=== PATIENT | female | born 1985 | race Caucasian/White ===

== ENCOUNTER 2017-05-08 21:30 | Emergency (ER) | payer OTHER ==
[~2017-05-08] VITALS: Ht 160 cm; Wt 72.6 kg
--- NOTE | ~2017-05-08 | EKG ---
PATIENT: CHANTALE JOHNSON UNIT #: [id number] Ventricular Rate: 73 BPM Atrial Rate: 73 BPM P-R Interval: 118 ms QRS Duration: 78 ms Q-T Interval: 394 ms QTC Calculation(Bezet): 434 ms P [place]: 36 degrees Calculated R [place]: 36 degrees Calculated T [place]: 12 degrees Diagnosis Line: Normal sinus rhythm Diagnosis Line: Nonspecific T wave abnormality Diagnosis Line: Borderline ECG Diagnosis Line: When compared with ECG of 24-JAN-2014 19:54, Diagnosis Line: No significant change was found Diagnosis Line: Confirmed by LONNIE PANTOJA MD ([id number]) on 05/09/2017 Diagnosis Line: 4:33:02 PM INTERPRETING MD: KIT BRONSON
--- NOTE | ~2017-05-08 | CR72 ---
[facility]. [facility] A Service of [facility] & [facility] RADIOLOGY TEXT RESULTS PATIENT: CHANTALE JOHNSON LOCATION: SED : 87 UNIT #: [id number] AGE: [address]: Navin Onofre MD SEX: F ORDER DR: [id number] [place] [id number] MR#: [id number] Acc #: [id number] NAME: CHANTALE JOHNSON : 1985 SEX: F STUDY DATE/TIME: 05/08/2017 22:45 UNIT: SED ROOM: STUDY DESCRIPTION: CR Chest Single View Portable Attending Physician: Navin Onofre M.D. Ordering Physician: Navin Onofre M.D. Primary Care Physician: Dave Gunter M.D. MEDICAL IMAGING REPORT This report is preliminary unless electronic signature is present. EXAM Chest x-ray, 05/08/2017 HISTORY 31-year-old female in the ED complaining of chest pain beginning earlier today after an epidural spine injection. TECHNIQUE AP portable upright chest x-ray. FINDINGS The examination is technically limited due to underexposure of the lower lungs due to patient body habitus. The lungs are grossly clear. Heart size and pulmonary vascularity are normal. No visible pulmonary filtrate or pleural effusion. No pneumothorax. IMPRESSION Negative chest x-ray with limitations as noted above. Dictated by... Marlo Olvera M.D. THIS IS AN ELECTRONICALLY VERIFIED REPORT Marlo Olvera M.D. at 05/12/2017 11:06 PM Trena TD: 05/09/2017 13:04 JOB #: [id number] MEDICAL IMAGING REPORT Page 1 of 1
[~2017-05-08 21:30] MED LIST: ABILIFY20 MG; ABILIFY20 MG PO; ALBUTEROL17 GM INH; AMBIEN PO; AMITRIPTYLINE H75 MG PO; ANTIVERT PO; BACLOFEN10 MG PO; BACTROBAN15 GM TOP; BUSPAR5 M1 DOB; CLEOCIN HCL300 M1 PO; CORTISONE14 GM TP; DIPHENHYDRAMINE30 GM TP; EFFEXOR-XR150 MG; EPINEPHRIN0.3 MG/0.3 IJ; FLEXERIL PO; FLORINEF ACETA0.1 MG PO; FLORINEF0.1 MG PO; IBUPROFEN800 MG PO; LIORESAL10 MG; MECLIZINE HCL12.5 MG PO; NORCO 10-325 TA1 TAB PO; NORCO1 TAB 10/3; PHENERGAN W/CO120 ML PO; PRENATAL MULITV1 TAB; PRENATAL1 TA1; SINGULAIR; SYMBICORT INH; THORAZINE10 MG PO; TOPAMAX PO; WELLBUTRIN PO; ZITHROMAX PO; ZOLOFT PO
[2017-05-08] MEDS ORDERED: ZANAFLEX2 M1 PO (21:37)
[2017-05-08] MEDS ORDERED: ALBUTEROL17 GM INH (21:38)
[2017-05-08] MEDS ORDERED: SYMBICORT INH (21:38)
[2017-05-08 22:38] LABS: BASOPHIL# 0.1 X10e3 (0-0.3); BASOPHIL% 0.6 % (0-2.5); DIFF IND NO; EOSINOPHIL# 0.2 X10e3 (0-0.7); EOSINOPHIL% 1.8 % (0.0-7.0); HEMATOCRIT 34.9 % (35.0-45.0); HEMOGLOBIN 11.9 gm/dL (12.0-16.0); LYMPHOCYTE# 1.2 X10e3 (1.0-3.5); LYMPHOCYTE% 9.8 % (17.0-45.0); MEAN CORPUSCULAR HEMOGLOBIN 28.9 PG (28-34); MEAN PLATELET VOLUME 8.3 FL (6.5-11.5); MONOCYTE# 0.6 X10e3 (0-1.0); NEUTROPHIL# 10.5 X10e3 (1.5-7.1); NEUTROPHIL% 82.8 % (40-75); PLATELET COUNT 327 X10e3 (140-420); RED BLOOD COUNT 4.11 X10e (3.90-5.30); RED CELL DISTRIBUTION WIDTH 13.8 % (11.0-15.5); WHITE BLOOD COUNT 12.7 X10e3 (4.0-10.5)
[2017-05-08 22:54] LABS: POC - CKMB <1.0 ng/mL (0.0-7.9); POC - TROPONIN <0.05 ng/mL (<=0.05)
[2017-05-08 22:59] LABS: CALCIUM SERUM 9.7 mg/dL (8.4-10.2); CREATININE SERUM 0.7 mg/dL (0.6-1.4); GLOM FILT RATE Estimated 116.3 mL/min (>60); POTASSIUM 3.6 mmol/L (3.5-5.1)
== END 2017-05-08 23:53 | disposition home or self-care (01) ==
LOC: SED 21:30
PROVIDERS: Emergency Medicine
DX: K21.9 Gastro-esophageal reflux disease without esophagitis (principal); F41.9 Anxiety disorder, unspecified
CPT/HCPCS: 36415; 71010; 80048; 82553; 83874; 84484; 85025; 93005; 96374; 99285; C9113